=== PATIENT | male | born 1970 | race Hispanic/Latino ===

== ENCOUNTER 2016-07-07 22:17 | Emergency (ER) | payer SELFPAY ==
[2016-07-07 22:53] VITALS: BP 136/93
--- NOTE | 2016-07-11 13:39 | ED Elopement Review ---
ED Pt Elopement review - Call Back decision Pt Call Back Decision: No action required
== END 2016-07-08 01:41 | disposition left against medical advice (07) ==
LOC: ED 22:17
DX: R56.9 Unspecified convulsions (principal); Z88.6 Allergy status to analgesic agent; Z88.5 Allergy status to narcotic agent; Z53.21 Procedure and treatment not carried out due to patient leaving prior to being seen by health care provider

== ENCOUNTER 2021-04-02 10:55 | Inpatient (IN) | payer MEDICAID ==
[2021-04-02] MEDS ORDERED: levETIRAcetam 1000 MG/NS 0.75% 1,000 MG/100 ML BAG IV ONE (11:16)
[2021-04-02 12:10] LABS: Mean Corpuscular HGB Conc 37 % (32-34); Mean Corpuscular Volume 104 fl (84-94); Platelet Count 150 K/mm3 (140-440); Red Blood Count 3.52 M/mm3 (3.65-5.03); Red Cell Distribution Width 14.4 % (13.2-15.2)
[2021-04-02 12:11] LABS: Hematocrit 36.5 % (35.5-45.6); Hemoglobin 13.3 gm/dl (11.8-15.2)
[2021-04-02 12:20] LABS: BUN/Creatinine Ratio 8; Blood Urea Nitrogen 6 mg/dL (9-20); Calcium 8.5 mg/dL (8.4-10.2); Hemolysis Index 3
[2021-04-02 12:52] LABS: Anisocytosis 1+; Band Neutrophils # (Manual) 0.3 K/mm3; Platelet Estimate Consistent w Auto; Total Cells Counted 100
[2021-04-02] MEDS ORDERED: SODIUM CHLORIDE 0.9% 1000 ML 1,000 ML IV ONE (13:02)
[2021-04-02] MEDS ORDERED: LORazepam 2 MG/ML VIAL IV ONE (16:37)
--- NOTE | 2021-04-02 16:42 | Emergency Department Report ---
ED Seizure HPI - General Chief Complaint: Seizure Stated Complaint: SEIZURE Time Seen by Provider: 04/02/21 11:13 Source: EMS Mode of arrival: Stretcher Limitations: Altered Mental Status, Physical Limitation - History of Present Illness Initial Comments: Patient is a 50-year-old male with past medical history of seizure disorder and alcohol abuse who is presenting after seizure. Unknown how many seizures the patient had today. Patient postictal on paramedics arrival. Baseline the patient is conversant. Family told paramedics that the patient often times is violent in a postictal phase. Patient unable to give any additional history at this time. - Related Data Previous Rx's Medication Instructions Recorded Last Taken Type HYDROcodone/APAP 5-325 [[place] 1 each PO Q6HR PRN #14 tablet 12/10/15 Unknown Rx 5/325] Allergies Allergy/AdvReac Type Severity Reaction Status Date / Time aspirin Allergy Unknown Verified 12/10/15 18:22 codeine Allergy Unknown Verified 12/10/15 18:22 ED Review of Systems ROS: Stated complaint: SEIZURE Other details as noted in HPI Comment: All other systems reviewed and negative ED Past Medical Hx - Past Medical History Hx Seizures: Yes (epilepsy) - Social History Smoking Status: Current Every Day Smoker - Medications Home Medications: Home Medications Medication Instructions Recorded Confirmed Last Taken Type HYDROcodone/APAP 5-325 [[place] 1 each PO Q6HR PRN #14 tablet 12/10/15 Unknown Rx 5/325] ED Physical Exam - General Limitations: Altered Mental Status, Physical Limitation General appearance: postictal - Head Head exam: Present: atraumatic, normocephalic - Eye Eye exam: Present: normal appearance, PERRL, EOMI - ENT ENT exam: Present: mucous membranes moist - Neck Neck exam: Present: normal inspection - Respiratory Respiratory exam: Present: normal lung sounds bilaterally. Absent: respiratory distress, wheezes, rales, rhonchi - Cardiovascular Cardiovascular Exam: Present: regular rate, normal rhythm, normal heart sounds. Absent: systolic murmur, diastolic murmur, rubs, gallop - GI/Abdominal GI/Abdominal exam: Present: soft, normal bowel sounds. Absent: distended, tenderness, guarding, rebound - Rectal Rectal exam: Present: deferred - Extremities Exam Extremities exam: Present: normal inspection - Back Exam Back exam: Present: normal inspection - Neurological Exam Neurological exam: Present: alert, altered - Psychiatric Psychiatric exam: Present: normal affect, normal mood - Skin Skin exam: Present: warm, dry, intact, normal color. Absent: rash ED Course Vital Signs 04/02/21 04/02/21 04/02/21 11:29 11:30 11:45 Pulse Rate 92 H Respiratory 17 Rate Blood Pressure 133/83 133/83 O2 Sat by Pulse 93 92 89 Oximetry 04/02/21 04/02/21 04/02/21 12:01 12:15 12:31 Pulse Rate 88 91 H Respiratory 18 13 Rate Blood Pressure 142/79 142/79 136/68 O2 Sat by Pulse 88 91 96 Oximetry 04/02/21 04/02/21 04/02/21 12:45 13:01 13:02 Pulse Rate 93 H 97 H Respiratory 18 17 Rate Blood Pressure 136/68 144/76 O2 Sat by Pulse 97 97 98 Oximetry 04/02/21 04/02/21 04/02/21 13:15 13:31 13:45 Pulse Rate 95 H 89 96 H Respiratory 16 10 L 23 Rate Blood Pressure 144/76 128/74 128/74 O2 Sat by Pulse 97 97 100 Oximetry 04/02/21 04/02/21 04/02/21 14:01 14:15 14:31 Pulse Rate 87 Respiratory 20 13 14 Rate Blood Pressure 117/75 117/75 90/60 O2 Sat by Pulse 100 98 Oximetry 04/02/21 04/02/21 04/02/21 14:45 15:01 15:15 Pulse Rate 103 H Respiratory 17 Rate Blood Pressure 117/75 118/80 118/80 O2 Sat by Pulse 89 98 98 Oximetry 04/02/21 04/02/21 04/02/21 15:31 15:45 16:01 Pulse Rate 80 70 71 Respiratory 18 22 22 Rate Blood Pressure 118/80 90/60 111/71 O2 Sat by Pulse 97 99 100 Oximetry ED Medical Decision Making - Lab Data Result diagrams: 04/02/21 11:45 04/02/21 11:45 Patient was monitored in the emergency department for multiple hours and still in her altered state. Patient moving all extremities but try to get out of bed inappropriately and is not yet verbal. Patient will be admitted for observation for prolonged postictal phase. Critical care attestation.: If time is entered above; I have spent that time in minutes in the direct care of this critically ill patient, excluding procedure time. ED Disposition Clinical Impression: Post-ictal confusion, Hyponatremia, Breakthrough seizure Disposition: 02 SHORT TERM HOSPITAL Is pt being admited?: Yes Does the pt Need Aspirin: No Condition: Stable Referrals: PRIMARY CARE, [Primary Care Provider] - 3-5 Days Time of Disposition: 16:42
[2021-04-02] MEDS ORDERED: LORazepam 2 MG/ML VIAL IV PRN (17:55)
[2021-04-02 18:15] LABS: Amphetamine Screen,Urine Negative; Benzodiazepines Screen,Urine Negative; Cocaine Screen,Urine Negative; Methadone Screen,Urine Negative; Opiate Screen,Urine Negative
[2021-04-02] MEDS: LORazepam 2 MG/ML VIAL IV PRN ×2 (18:17→23:34)
[2021-04-02 18:49] LABS: Cannabinoid Screen,Urine Positive
--- NOTE | 2021-04-02 20:13 | History and Physical Report ---
History of Present Illness Date of examination: 04/02/21 Date of admission: 04/02/21 16:42 Chief complaint: Multiple seizures at home History of present illness: 50-year-old male with history of seizures and alcohol abuse comes in for multiple seizures since a.m. Unknown how many on the paramedics. Patient continues to be postictal in the emergency room and clinician. No agitation. Patient with decreased responsiveness in the emergency room. No fever or chills. No exposure to Covid vaccination status not known. No seizures in the emergency room - Past Medical History --Seizures: Yes (epilepsy) --EtOH dependence --surgical history unavailable because of patient's mental status family history unavailable - Social History Smoking Status: Current Every Day Smoker - Medications Home Medications: Home Medications Medication Instructions Recorded Confirmed Last Taken Type HYDROcodone/APAP 5-325 [[place] 1 each PO Q6HR PRN #14 tablet 12/10/15 Unknown Rx 5/325] Review of Systems ROS: Constitutional no weight loss or weight gain no fever or chills HEENT no sore throat no post nasal drip no diplopia Neck no neck stiffness no lymph gland enlargement Chest and lungs no shortness of breath cough or wheezing CVS no chest pain no diaphoresis no palpitations GI no nausea no vomiting no diarrhea Genitourinary system no dysuria no flank pain Musculoskeletal system no muscle pains no joint pains FINANCE MANAGER multiple seizures and postictal state Skin no rash no itching Psychiatric no depression no homicidal or suicidal tendencies Hematologic no lymphedema or bruising Endocrine no polydipsia no polyuria no cold intolerance no heat intolerance Medications and Allergies Allergies Allergy/AdvReac Type Severity Reaction Status Date / Time aspirin Allergy Unknown Verified 12/10/15 18:22 codeine Allergy Unknown Verified 12/10/15 18:22 Home Medications Medication Instructions Recorded Confirmed Last Taken Type HYDROcodone/APAP 5-325 [[place] 1 each PO Q6HR PRN #14 tablet 12/10/15 Unknown Rx 5/325] Active Meds: Active Medications Sodium Chloride (Nacl 0.9% 1000 Ml) 1,000 mls @ 125 mls/hr IV DIRECT YANIV Lorazepam (Lorazepam 2 Mg/Ml Vial) 2 mg IV Q1HR PRN PRN Reason: EMILY-Dereck 8- Last Admin: 04/02/21 18:17 Dose: 2 mg Documented by: Lorazepam (Lorazepam 2 Mg/Ml Vial) 4 mg IV Q1HR PRN PRN Reason: CIWA-Ar 16-25 Lorazepam (Lorazepam 2 Mg/Ml Vial) 4 mg IV Q15MIN PRN PRN Reason: CIWA-Ar >25 Exam - Constitutional Vitals: Temp Pulse Resp BP Pulse Ox 98.0 F 77 22 112/66 96 04/02/21 18:51 04/02/21 18:01 04/02/21 16:31 04/02/21 18:01 04/02/21 18:01 General appearance: Present: no acute distress, well-nourished - EENT Eyes: Present: PERRL ENT: hearing intact, clear oral mucosa - Neck Neck: Present: supple, normal ROM - Respiratory Respiratory effort: normal Respiratory: bilateral: CTA - Cardiovascular Heart rate: 78 Rhythm: regular Heart Sounds: Present: S1 & S2. Absent: rub, click - Extremities Extremities: pulses symmetrical, No edema Peripheral Pulses: within normal limits - Abdominal General gastrointestinal: Present: soft, non-tender, non-distended, normal bowel sounds Male genitourinary: Present: normal - Integumentary Integumentary: Present: clear, warm, dry - Musculoskeletal Musculoskeletal: strength equal bilaterally, generalized weakness - Psychiatric Psychiatric: intact judgment & insight, depressed - Neurologic Neurologic: CNII-XII intact, moves all extremities - Allied Health Allied health notes reviewed: nursing, case management Results - Labs CBC & Chem 7: 04/02/21 11:45 04/03/21 04:57 Labs: Laboratory Last Values WBC 14.4 K/mm3 (4.5-11.0) H 04/02/21 11:45 RBC 3.52 M/mm3 (3.65-5.03) L 04/02/21 11:45 Hgb 13.3 gm/dl (11.8-15.2) 04/02/21 11:45 Hct 36.5 % (35.5-45.6) 04/02/21 11:45 MCV 104 fl (84-94) H 04/02/21 11:45 MCH 38 pg (28-32) H 04/02/21 11:45 MCHC 37 % (32-34) H 04/02/21 11:45 RDW 14.4 % (13.2-15.2) 04/02/21 11:45 Plt Count 150 K/mm3 (140-440) 04/02/21 11:45 [place] % (Auto) Global Marketing Manager 04/02/21 11:45 Add Manual Diff Complete 04/02/21 11:45 Total Counted 100 04/02/21 11:45 Seg Neuts % (Manual) 77.0 % (40.0-70.0) H 04/02/21 11:45 Band Neutrophils % 2.0 % 04/02/21 11:45 Lymphocytes % (Manual) 6.0 % (13.4-35.0) L 04/02/21 11:45 Monocytes % (Manual) 15.0 % (0.0-7.3) H 04/02/21 11:45 Nucleated RBC % Not Reportable 04/02/21 11:45 Seg Neutrophils # Man 11.1 K/mm3 (1.8-7.7) H 04/02/21 11:45 Band Neutrophils # 0.3 K/mm3 04/02/21 11:45 Lymphocytes # (Manual) 0.9 K/mm3 (1.2-5.4) L 04/02/21 11:45 Abs React Lymphs (Man) 0.0 K/mm3 04/02/21 11:45 Monocytes # (Manual) 2.2 K/mm3 (0.0-0.8) H 04/02/21 11:45 Eosinophils # (Manual) 0.0 K/mm3 (0.0-0.4) 04/02/21 11:45 Basophils # (Manual) 0.0 K/mm3 (0.0-0.1) 04/02/21 11:45 Metamyelocytes # 0.0 K/mm3 04/02/21 11:45 Myelocytes # 0.0 K/mm3 04/02/21 11:45 Promyelocytes # 0.0 K/mm3 04/02/21 11:45 Blast Cells # 0.0 K/mm3 04/02/21 11:45 WBC Morphology Not Reportable 04/02/21 11:45 Hypersegmented Neuts Not Reportable 04/02/21 11:45 Hyposegmented Neuts Not Reportable 04/02/21 11:45 Hypogranular Neuts Not Reportable 04/02/21 11:45 Smudge Cells Not Reportable 04/02/21 11:45 Toxic Granulation Not Reportable 04/02/21 11:45 Toxic Vacuolation Not Reportable 04/02/21 11:45 Dohle Bodies Not Reportable 04/02/21 11:45 Pelger-Huet Anomaly Not Reportable 04/02/21 11:45 Kojo Rods Not Reportable 04/02/21 11:45 Platelet Estimate Consistent w auto 04/02/21 11:45 Clumped Platelets Not Reportable 04/02/21 11:45 Plt Clumps, EDTA Not Reportable 04/02/21 11:45 Large Platelets Not Reportable 04/02/21 11:45 Giant Platelets Not Reportable 04/02/21 11:45 Platelet Satelliting Not Reportable 04/02/21 11:45 Plt Morphology Comment Not Reportable 04/02/21 11:45 RBC Morphology Not Reportable 04/02/21 11:45 Dimorphic RBCs Not Reportable 04/02/21 11:45 Polychromasia Not Reportable 04/02/21 11:45 Hypochromasia Not Reportable 04/02/21 11:45 Poikilocytosis Not Reportable 04/02/21 11:45 Anisocytosis 1+ 04/02/21 11:45 Microcytosis Not Reportable 04/02/21 11:45 Macrocytosis Not Reportable 04/02/21 11:45 Spherocytes Not Reportable 04/02/21 11:45 Pappenheimer Bodies Not Reportable 04/02/21 11:45 Sickle Cells Not Reportable 04/02/21 11:45 Target Cells Not Reportable 04/02/21 11:45 Tear Drop Cells Not Reportable 04/02/21 11:45 Ovalocytes Not Reportable 04/02/21 11:45 Helmet Cells Not Reportable 04/02/21 11:45 [place] Bodies Not Reportable 04/02/21 11:45 [place] Rings Not Reportable 04/02/21 11:45 Gracie Cells Not Reportable 04/02/21 11:45 Bite Cells Not Reportable 04/02/21 11:45 Crenated Cell Not Reportable 04/02/21 11:45 Elliptocytes Not Reportable 04/02/21 11:45 Acanthocytes (Spur) Not Reportable 04/02/21 11:45 Rouleaux Not Reportable 04/02/21 11:45 Hemoglobin C Crystals Not Reportable 04/02/21 11:45 Schistocytes Not Reportable 04/02/21 11:45 Malaria parasites Not Reportable 04/02/21 11:45 Regan Bodies Not Reportable 04/02/21 11:45 Hem Pathologist Commnt No 04/02/21 11:45 Sodium 130 mmol/L (137-145) L 04/02/21 11:45 Potassium 3.9 mmol/L (3.6-5.0) 04/02/21 11:45 Chloride 92.1 mmol/L (98-107) L 04/02/21 11:45 Carbon Dioxide 24 mmol/L (22-30) 04/02/21 11:45 Anion Gap 18 mmol/L 04/02/21 11:45 BUN 6 mg/dL (9-20) L 04/02/21 11:45 Creatinine 0.8 mg/dL (0.8-1.3) 04/02/21 11:45 Estimated GFR > 60 ml/min 04/02/21 11:45 BUN/Creatinine Ratio 8 % 04/02/21 11:45 Glucose 74 mg/dL (75-100) L 04/02/21 11:45 Calcium 8.5 mg/dL (8.4-10.2) 04/02/21 11:45 Urine Opiates Screen Negative 04/02/21 Unknown Urine Methadone Screen Negative 04/02/21 Unknown Ur Barbiturates Screen Negative 04/02/21 Unknown Ur Phencyclidine Scrn Negative 04/02/21 Unknown Ur Amphetamines Screen Negative 04/02/21 Unknown U Benzodiazepines Scrn Negative 04/02/21 Unknown Urine Cocaine Screen Negative 04/02/21 Unknown U Marijuana (THC) Screen Positive 04/02/21 Unknown Drugs of Abuse Note Disclamer 04/02/21 Unknown Plasma/Serum Alcohol < 0.01 % (0-0.07) 04/02/21 11:45 Assessment and Plan Advance Directives: Yes (Full code) Plan of care discussed with patient/family: Yes - Patient Problems (1) Acute encephalopathy Current Visit: Yes Status: Acute Plan to address problem: Patient is post ictal and secondary to status epilepticus Showed improvement tomorrow (2) Status epilepticus Current Visit: Yes Status: Acute Plan to address problem: Patient is on IV Keppra To be transitioned to oral Keppra tomorrow Neurology consult requested (3) Hyponatremia Current Visit: Yes Status: Acute Plan to address problem: IV normal saline for now Recheck sodium level (4) Tetrahydrocannabinol (THC) dependence Current Visit: Yes Status: Acute Plan to address problem: Patient to be counseled about marijuana use (5) DVT prophylaxis Current Visit: Yes Status: Acute Plan to address problem: On heparin and GI prophylaxis
[2021-04-02] MEDS ORDERED: ONDANSETRON 4 MG/2 ML INJ IV PRN (20:16)
[2021-04-02] MEDS ORDERED: oxyCODONE /ACETAMINOPHEN 5-325MG TAB PO PRN (20:16)
[2021-04-02] MEDS ORDERED: METOCLOPRAMIDE 10 MG/2 ML INJ IV PRN (20:16)
[2021-04-02] MEDS ORDERED: ACETAMINOPHEN 325 MG TAB PO PRN (20:16)
[2021-04-02] MEDS: SODIUM CHLORIDE 0.9% 1000 ML 1,000 ML IV SCH (21:36)
[2021-04-02] MEDS: HEPARIN 5,000 UNIT/1 ML VIAL SUB-Q SCH (22:10)
[2021-04-02] MEDS: levETIRAcetam 750 MG in DEXTROSE 5% IN WATER 100 ML IV SCH (22:15)
[2021-04-02] MEDS: FAMOTIDINE 20 MG TAB PO SCH (22:52)
[2021-04-02] MEDS: HYDROmorphone 1 MG/1 ML INJ IV PRN (23:12)
[2021-04-03] MEDS: LORazepam 2 MG/ML VIAL IV PRN ×3 (03:15→12:23)
[2021-04-03 05:40] LABS: Alanine Aminotransferase 7 units/L (7-56); Albumin 3.2 g/dL (3.9-5); Blood Urea Nitrogen 8 mg/dL (9-20); Hemolysis Index 9
[2021-04-03 05:44] LABS: BUN/Creatinine Ratio 11
--- NOTE | 2021-04-03 07:31 | Progress Note ---
Assessment and Plan Assessment and plan: -- Acute encephalopathy Current Visit: Yes Status: Acute Patient is post ictal and secondary to status epilepticus Showed improvement tomorrow -- Status epilepticus Current Visit: Yes Status: Acute Seizure precautions follow Patient is on IV Keppra To be transitioned to oral Keppra tomorrow Follow neurology evaluation recommendations Patient cannot drive until cleared by neurology/PMD -- Hyponatremia Current Visit: Yes Status: Acute IV normal saline for now Recheck sodium level -- Tetrahydrocannabinol (THC) dependence Current Visit: Yes Status: Acute Patient to be counseled about marijuana use -- DVT prophylaxis Current Visit: Yes Status: Acute On heparin and GI prophylaxis We will closely monitor the patient and adjust the management as needed Plan of care reviewed with the patient's nurse Will try to contact the family History Interval history: I have seen and examined the patient at the bedside in the ER awaiting bed assignment Patient was admitted with seizure episodes, and possible alcohol withdrawal symptoms Patient is severely lethargic response to deep stimuli, not in acute distress, No new episodes of Hospitalist Physical - Constitutional Vitals: Temp Pulse Resp BP Pulse Ox 98.0 F 78 21 127/82 97 04/02/21 18:51 04/03/21 07:23 04/03/21 07:23 04/03/21 07:23 04/03/21 07:23 General appearance: Present: no acute distress, well-nourished, other (Lethargic) - EENT Eyes: Present: PERRL, EOM intact - Neck Neck: Present: supple, normal ROM - Respiratory Respiratory effort: normal Respiratory: bilateral: diminished, rhonchi, negative: rales, wheezing - Cardiovascular Rhythm: regular Heart Sounds: Present: S1 & S2 - Extremities Extremities: no ischemia, No edema - Abdominal General gastrointestinal: soft, non-tender, non-distended, normal bowel sounds - Integumentary Integumentary: Present: clear, warm - Psychiatric Psychiatric: other (Nonverbal lethargic) - Neurologic Neurologic: other (Noncommunicative) Results - Labs CBC & Chem 7: 04/02/21 11:45 04/03/21 04:57 Labs: Laboratory Last Values WBC 14.4 K/mm3 (4.5-11.0) H 04/02/21 11:45 RBC 3.52 M/mm3 (3.65-5.03) L 04/02/21 11:45 Hgb 13.3 gm/dl (11.8-15.2) 04/02/21 11:45 Hct 36.5 % (35.5-45.6) 04/02/21 11:45 MCV 104 fl (84-94) H 04/02/21 11:45 MCH 38 pg (28-32) H 04/02/21 11:45 MCHC 37 % (32-34) H 04/02/21 11:45 RDW 14.4 % (13.2-15.2) 04/02/21 11:45 Plt Count 150 K/mm3 (140-440) 04/02/21 11:45 [place] % (Auto) Trigonometry Tutor 04/02/21 11:45 Add Manual Diff Complete 04/02/21 11:45 Total Counted 100 04/02/21 11:45 Seg Neuts % (Manual) 77.0 % (40.0-70.0) H 04/02/21 11:45 Band Neutrophils % 2.0 % 04/02/21 11:45 Lymphocytes % (Manual) 6.0 % (13.4-35.0) L 04/02/21 11:45 Monocytes % (Manual) 15.0 % (0.0-7.3) H 04/02/21 11:45 Nucleated RBC % Not Reportable 04/02/21 11:45 Seg Neutrophils # Man 11.1 K/mm3 (1.8-7.7) H 04/02/21 11:45 Band Neutrophils # 0.3 K/mm3 04/02/21 11:45 Lymphocytes # (Manual) 0.9 K/mm3 (1.2-5.4) L 04/02/21 11:45 Abs React Lymphs (Man) 0.0 K/mm3 04/02/21 11:45 Monocytes # (Manual) 2.2 K/mm3 (0.0-0.8) H 04/02/21 11:45 Eosinophils # (Manual) 0.0 K/mm3 (0.0-0.4) 04/02/21 11:45 Basophils # (Manual) 0.0 K/mm3 (0.0-0.1) 04/02/21 11:45 Metamyelocytes # 0.0 K/mm3 04/02/21 11:45 Myelocytes # 0.0 K/mm3 04/02/21 11:45 Promyelocytes # 0.0 K/mm3 04/02/21 11:45 Blast Cells # 0.0 K/mm3 04/02/21 11:45 WBC Morphology Not Reportable 04/02/21 11:45 Hypersegmented Neuts Not Reportable 04/02/21 11:45 Hyposegmented Neuts Not Reportable 04/02/21 11:45 Hypogranular Neuts Not Reportable 04/02/21 11:45 Smudge Cells Not Reportable 04/02/21 11:45 Toxic Granulation Not Reportable 04/02/21 11:45 Toxic Vacuolation Not Reportable 04/02/21 11:45 Dohle Bodies Not Reportable 04/02/21 11:45 Pelger-Huet Anomaly Not Reportable 04/02/21 11:45 Kojo Rods Not Reportable 04/02/21 11:45 Platelet Estimate Consistent w auto 04/02/21 11:45 Clumped Platelets Not Reportable 04/02/21 11:45 Plt Clumps, EDTA Not Reportable 04/02/21 11:45 Large Platelets Not Reportable 04/02/21 11:45 Giant Platelets Not Reportable 04/02/21 11:45 Platelet Satelliting Not Reportable 04/02/21 11:45 Plt Morphology Comment Not Reportable 04/02/21 11:45 RBC Morphology Not Reportable 04/02/21 11:45 Dimorphic RBCs Not Reportable 04/02/21 11:45 Polychromasia Not Reportable 04/02/21 11:45 Hypochromasia Not Reportable 04/02/21 11:45 Poikilocytosis Not Reportable 04/02/21 11:45 Anisocytosis 1+ 04/02/21 11:45 Microcytosis Not Reportable 04/02/21 11:45 Macrocytosis Not Reportable 04/02/21 11:45 Spherocytes Not Reportable 04/02/21 11:45 Pappenheimer Bodies Not Reportable 04/02/21 11:45 Sickle Cells Not Reportable 04/02/21 11:45 Target Cells Not Reportable 04/02/21 11:45 Tear Drop Cells Not Reportable 04/02/21 11:45 Ovalocytes Not Reportable 04/02/21 11:45 Helmet Cells Not Reportable 04/02/21 11:45 [place] Bodies Not Reportable 04/02/21 11:45 [place] Rings Not Reportable 04/02/21 11:45 Gracie Cells Not Reportable 04/02/21 11:45 Bite Cells Not Reportable 04/02/21 11:45 Crenated Cell Not Reportable 04/02/21 11:45 Elliptocytes Not Reportable 04/02/21 11:45 Acanthocytes (Spur) Not Reportable 04/02/21 11:45 Rouleaux Not Reportable 04/02/21 11:45 Hemoglobin C Crystals Not Reportable 04/02/21 11:45 Schistocytes Not Reportable 04/02/21 11:45 Malaria parasites Not Reportable 04/02/21 11:45 Regan Bodies Not Reportable 04/02/21 11:45 Hem Pathologist Commnt No 04/02/21 11:45 Sodium 130 mmol/L (137-145) L 04/03/21 04:57 Potassium 3.9 mmol/L (3.6-5.0) 04/02/21 11:45 Chloride 92.1 mmol/L (98-107) L 04/02/21 11:45 Carbon Dioxide 26 mmol/L (22-30) 04/03/21 04:57 Anion Gap 18 mmol/L 04/02/21 11:45 BUN 8 mg/dL (9-20) L 04/03/21 04:57 Creatinine 0.7 mg/dL (0.8-1.3) L 04/03/21 04:57 Estimated GFR > 60 ml/min 04/03/21 04:57 BUN/Creatinine Ratio 11 % 04/03/21 04:57 Glucose 79 mg/dL (75-100) 04/03/21 04:57 Calcium 9.0 mg/dL (8.4-10.2) 04/03/21 04:57 Total Bilirubin 0.60 mg/dL (0.1-1.2) 04/03/21 04:57 AST 25 units/L (5-40) 04/03/21 04:57 ALT 7 units/L (7-56) 04/03/21 04:57 Alkaline Phosphatase 44 units/L (35-129) 04/03/21 04:57 Total Protein 6.5 g/dL (6.3-8.2) 04/03/21 04:57 Albumin 3.2 g/dL (3.9-5) L 04/03/21 04:57 Albumin/Globulin Ratio 1.0 % 04/03/21 04:57 Urine Opiates Screen Negative 04/02/21 Unknown Urine Methadone Screen Negative 04/02/21 Unknown Ur Barbiturates Screen Negative 04/02/21 Unknown Ur Phencyclidine Scrn Negative 04/02/21 Unknown Ur Amphetamines Screen Negative 04/02/21 Unknown U Benzodiazepines Scrn Negative 04/02/21 Unknown Urine Cocaine Screen Negative 04/02/21 Unknown U Marijuana (THC) Screen Positive 04/02/21 Unknown Drugs of Abuse Note Disclamer 04/02/21 Unknown Plasma/Serum Alcohol < 0.01 % (0-0.07) 04/02/21 11:45 Active Medications - Current Medications Current Medications: Generic Name Dose Route Start Last Admin Trade Name Freq PRN Reason Stop Dose Admin Acetaminophen 650 mg 04/02/21 20:16 Acetaminophen 325 Mg Tab PO Q4H PRN Pain MILD(1-3)/Fever >100.5/[place] Famotidine 20 mg 04/02/21 22:00 04/02/21 22:52 Famotidine 20 Mg Tab PO Not Given BID YANIV Heparin Sodium (Porcine) 5,000 unit 04/02/21 22:00 04/02/21 22:10 Heparin 5,000 Unit/1 Ml Vial SUB-Q 5,000 unit Q12HR YANIV Administration Hydromorphone HCl 0.5 mg 04/02/21 20:16 Hydromorphone 1 Mg/1 Ml Inj IV Q3H PRN Pain , Severe (7-10) Sodium Chloride 1,000 mls @ 125 mls/hr 04/02/21 17:00 04/02/21 21:36 Nacl 0.9% 1000 Ml IV 125 mls/hr DIRECT YANIV Administration Levetiracetam 750 mg/ Dextrose 107.5 mls @ 400 mls/hr 04/02/21 22:00 04/02/21 22:15 IV 400 mls/hr Q12HR YANIV Administration Lorazepam 2 mg 04/02/21 17:55 04/02/21 23:34 Lorazepam 2 Mg/Ml Vial IV 2 mg Q1HR PRN Administration CIWA-Ar 8-15 Lorazepam 4 mg 04/02/21 17:55 04/03/21 07:10 Lorazepam 2 Mg/Ml Vial IV 4 mg Q1HR PRN Administration CIWA-Ar 16-25 Lorazepam 4 mg 04/02/21 17:55 Lorazepam 2 Mg/Ml Vial IV Q15MIN PRN CIWA-Ar >25 Metoclopramide HCl 10 mg 04/02/21 20:16 Metoclopramide 10 Mg/2 Ml Inj IV Q6H PRN Nausea And Vomiting Ondansetron HCl 4 mg 04/02/21 20:16 Ondansetron 4 Mg/2 Ml Inj IV Q8H PRN Nausea And Vomiting Oxycodone/Acetaminophen 1 tab 04/02/21 20:16 Oxycodone /Acetaminophen 5-325mg Tab PO Q6H PRN Pain, Moderate (4-6) Sodium Chloride 10 ml 04/02/21 22:00 04/02/21 22:15 Sodium Chloride 0.9% 10 Ml Flush Syringe IV 10 ml BID YANIV Administration Sodium Chloride 10 ml 04/02/21 20:16 Sodium Chloride 0.9% 10 Ml Flush Syringe IV PRN PRN LINE FLUSH
--- NOTE | 2021-04-03 09:14 | Consultation ---
History of Present Illness Consult date: 04/03/21 Reason for Consult: recurrent seizure and hx of acoholism History of present illness: Multiple seizures at home History of present illness: 50-year-old male with history of seizures and alcohol abuse comes in for multiple seizures since a.m. Unknown how many on the paramedics. Patient continues to be postictal in the emergency room and clinician. No agitation. Patient with decreased responsiveness in the emergency room. No fever or chills. No exposure to Covid vaccination status not known. No seizures in the emergency room could not get hx from pt. he is sleepy ? post ictal EEG is pending UDS positive for marijuana - Past Medical History --Seizures: Yes (epilepsy) --EtOH dependence --surgical history unavailable because of patient's mental status family history unavailable - Social History Smoking Status: Current Every Day Smoker - Medications Home Medications: Home Medications Medication Instructions Recorded Confirmed Last Taken Type HYDROcodone/APAP 5-325 [Cosby 1 each PO Q6HR PRN #14 tablet 12/10/15 Unknown Rx 5/325] Review of Systems ROS: Constitutional no weight loss or weight gain no fever or chills HEENT no sore throat no post nasal drip no diplopia Neck no neck stiffness no lymph gland enlargement Chest and lungs no shortness of breath cough or wheezing CVS no chest pain no diaphoresis no palpitations GI no nausea no vomiting no diarrhea Genitourinary system no dysuria no flank pain Musculoskeletal system no muscle pains no joint pains MANAGER COSMETIC multiple seizures and postictal state Skin no rash no itching Psychiatric no depression no homicidal or suicidal tendencies Hematologic no lymphedema or bruising Endocrine no polydipsia no polyuria no cold intolerance no heat intolerance Medications and Allergies Allergies Allergy/AdvReac Type Severity Reaction Status Date / Time aspirin Allergy Unknown Verified 12/10/15 18:22 codeine Allergy Unknown Verified 12/10/15 18:22 Home Medications Medication Instructions Recorded Confirmed Last Taken Type HYDROcodone/APAP 5-325 [Cosby 1 each PO Q6HR PRN #14 tablet 12/10/15 Unknown Rx 5/325] Active Meds: Active Medications Sodium Chloride (Nacl 0.9% 1000 Ml) 1,000 mls @ 125 mls/hr IV DIRECT YANIV Lorazepam (Lorazepam 2 Mg/Ml Vial) 2 mg IV Q1HR PRN PRN Reason: CIWA-Ar 02-09 Last Admin: 10/06/21 18:17 Dose: 2 mg Documented by: Lorazepam (Lorazepam 2 Mg/Ml Vial) 4 mg IV Q1HR PRN PRN Reason: CIWA-Ar 16-25 Lorazepam (Lorazepam 2 Mg/Ml Vial) 4 mg IV Q15MIN PRN PRN Reason: CIWA-Ar >25 Medications and Allergies Allergies Allergy/AdvReac Type Severity Reaction Status Date / Time codeine Allergy Severe Unknown Verified 04/03/21 11:17 aspirin Allergy Unknown Verified 12/10/15 18:22 phenobarbital Allergy Unknown Verified 04/03/21 11:17 Home Medications Medication Instructions Recorded Confirmed Last Taken Type Divalproex Dr [DepaKOTE DR] 750 mg PO BID 04/03/21 04/03/21 04/01/21 History Lacosamide [Vimpat] 150 mg PO 04/03/21 04/01/21 History Active Meds: Active Medications Acetaminophen (Acetaminophen 325 Mg Tab) 650 mg PO Q4H PRN PRN Reason: Pain MILD(1-3)/Fever >100.5/[place] Famotidine (Famotidine 20 Mg Tab) 20 mg PO BID [facility] Last Admin: 04/02/21 22:52 Dose: Not Given Documented by: Heparin Sodium (Porcine) (Heparin 5,000 Unit/1 Ml Vial) 5,000 unit SUB-Q Q12HR [facility] Last Admin: 04/02/21 22:10 Dose: 5,000 unit Documented by: Hydromorphone HCl (Hydromorphone 1 Mg/1 Ml Inj) 0.5 mg IV Q3H PRN PRN Reason: Pain , Severe (7-10) Sodium Chloride (Nacl 0.9% 1000 Ml) 1,000 mls @ 125 mls/hr IV DIRECT [facility] Last Admin: 04/02/21 21:36 Dose: 125 mls/hr Documented by: Levetiracetam 750 mg/ Dextrose 107.5 mls @ 400 mls/hr IV Q12HR [facility] Last Admin: 04/02/21 22:15 Dose: 400 mls/hr Documented by: Lorazepam (Lorazepam 2 Mg/Ml Vial) 2 mg IV Q1HR PRN PRN Reason: CIWA-Ar 8-15 Last Admin: 04/02/21 23:34 Dose: 2 mg Documented by: Lorazepam (Lorazepam 2 Mg/Ml Vial) 4 mg IV Q1HR PRN PRN Reason: CIWA-Ar 16-25 Last Admin: 04/03/21 07:10 Dose: 4 mg Documented by: Lorazepam (Lorazepam 2 Mg/Ml Vial) 4 mg IV Q15MIN PRN PRN Reason: CIWA-Ar >25 Metoclopramide HCl (Metoclopramide 10 Mg/2 Ml Inj) 10 mg IV Q6H PRN PRN Reason: Nausea And Vomiting Ondansetron HCl (Ondansetron 4 Mg/2 Ml Inj) 4 mg IV Q8H PRN PRN Reason: Nausea And Vomiting Oxycodone/Acetaminophen (Oxycodone /Acetaminophen 5-325mg Tab) 1 tab PO Q6H PRN PRN Reason: Pain, Moderate (4-6) Sodium Chloride (Sodium Chloride 0.9% 10 Ml Flush Syringe) 10 ml IV BID YANIV Last Admin: 04/02/21 22:15 Dose: 10 ml Documented by: Sodium Chloride (Sodium Chloride 0.9% 10 Ml Flush Syringe) 10 ml IV PRN PRN PRN Reason: LINE FLUSH Physical Examination - Vital Signs Vital Signs: Vital Signs Pulse Ox 93 04/02/21 11:29 - Constitutional General appearance: comfortable - EENT EENT: Present: PERRL, mucous membranes moist - Respiratory Respiratory: Present: chest non-tender, lungs clear, rhonchi - Cardiovascular Cardiovascular: Present: regular rate, normal S1, normal S2 Extremities: Present: no peripheral edema bilatateraly, no clubbing, cyanosis - Gastrointestinal Gastrointestinal: Present: normoactive bowel sounds - Integumentary Integumentary: Present: normal - Neurologic Cranial nerve examination: PERRL, EOMI, intact Speech examination: other (sleepy) Detailed motor examination: other (no response he is sleepy ,planter is down going,) Results - Laboratory Findings CBC and BMP: 04/02/21 11:45 04/03/21 04:57 Abnormal Lab Findings: Abnormal Labs 04/02/21 04/02/21 04/03/21 11:45 11:45 04:57 WBC 14.4 H RBC 3.52 L MCV 104 H MCH 38 H MCHC 37 H Seg Neuts % (Manual) 77.0 H Lymphocytes % (Manual) 6.0 L Monocytes % (Manual) 15.0 H Seg Neutrophils # Man 11.1 H Lymphocytes # (Manual) 0.9 L Monocytes # (Manual) 2.2 H Sodium 130 L 130 L Chloride 92.1 L BUN 6 L 8 L Creatinine 0.7 L Glucose 74 L Albumin 3.2 L Assessment and Plan Assessment and Plan Advance Directives: Yes (Full code) Plan of care discussed with patient/family: Yes - Patient Problems # Acute encephalopathy -Patient is post ictal and secondary to status epilepticus -EEG pending -CT brain is unremarkable -UDS showed Marijuana -Thiamin IV #Status epilepticus -Patient is on IV Keppra -keppra 750 mg bid # Hyponatremia IV normal saline for now Recheck sodium level # Tetrahydrocannabinol (THC) dependence -Patient to be counseled about marijuana use # DVT prophylaxis -On heparin and GI prophylaxis
--- NOTE | 2021-04-03 10:12 | Cat Scan Report ---
CT head/brain wo con INDICATION / CLINICAL INFORMATION: 50 years Male; recurrent seizure. TECHNIQUE: Routine CT head without contrast. All CT scans at this location are performed using CT dos e reduction for ALARA by means of automated exposure control. Significant motion artifact COMPARISON: None. FINDINGS: BRAIN / INTRACRANIAL CONTENTS: No acute hemorrhage, mass effect, midline shift, hydrocephalus, or acu te, large territorial infarct. No signs of significant atrophy or chronic infarct. No significant whi te matter abnormality seen. CRANIOCERVICAL JUNCTION: No significant abnormality. ORBITS: No significant abnormality of visualized orbits. SINUSES / MASTOIDS: Mild to moderate mucosal thickening in the right maxillary antrum. Mild mucosal t hickening noted in the ethmoids. ADDITIONAL FINDINGS: None. IMPRESSION: 1. No focal mass, hemorrhage, hydrocephalus, or acute, large territorial infarct on this study limite d by motion. Signer Name: Gilbert Del Castillo MD, III Signed: 04/03/2021 10:08 AM Workstation Name: [id number]
[2021-04-03] MEDS: HEPARIN 5,000 UNIT/1 ML VIAL SUB-Q SCH ×2 (10:21→22:52)
[2021-04-03] MEDS: levETIRAcetam 750 MG in DEXTROSE 5% IN WATER 100 ML IV SCH ×2 (10:54→22:51)
[2021-04-03] MEDS: THIAMINE 100 MG in SODIUM CHLORIDE 0.9% 50 ML IV SCH (12:20)
[2021-04-03] MEDS: FAMOTIDINE 20 MG TAB PO SCH ×2 (12:22→22:51)
[2021-04-03] MEDS: HYDROmorphone 1 MG/1 ML INJ IV PRN (20:10)
[2021-04-04] MEDS: SODIUM CHLORIDE 0.9% 1000 ML 1,000 ML IV SCH (01:01)
[2021-04-04] MEDS: FAMOTIDINE 20 MG TAB PO SCH ×2 (11:52→22:25)
[2021-04-04] MEDS: HEPARIN 5,000 UNIT/1 ML VIAL SUB-Q SCH ×2 (11:58→22:25)
[2021-04-04] MEDS: THIAMINE 100 MG in SODIUM CHLORIDE 0.9% 50 ML IV SCH (12:00)
[2021-04-04] MEDS: levETIRAcetam 750 MG in DEXTROSE 5% IN WATER 100 ML IV SCH (12:15)
--- NOTE | 2021-04-04 12:51 | Progress Note ---
Assessment and Plan Assessment and Plan Advance Directives: Yes (Full code) Plan of care discussed with patient/family: Yes - Patient Problems # Acute encephalopathy -Patient is post ictal and secondary to recurrent seizure -EEG mild slowing no seizure is noted --full report to follow today -CT brain is unremarkable -UDS showed Marijuana -Thiamin IV #recurrent seizure -Patient is on IV Keppra can change to 750 mg bid -keppra 750 mg bid -hx of seizure according to pt. almost monthly -STOP driving and seizure precaution -No alcohol or recreational drugs -Comply with keppra -neurology follow up -review MRI brain # Hyponatremia IV normal saline for now Recheck sodium level # Tetrahydrocannabinol (THC) dependence -Patient to be counseled about marijuana use # DVT prophylaxis -On heparin and GI prophylaxis Subjective Date of service: 04/04/21 Principal diagnosis: recurrent seizure Interval history: Pt. is more alert todat disoriented to place and date recall his birthdate according to pt. he stopped drinking few months back ? he is with recurrent seizure almost monthly at time take phenobarbitol ? he drives , lives with his mom. Objective - Vital Sign Vital Signs - 12hr 04/04/21 04:17 Temperature 98.0 F Pulse Rate 88 Respiratory 18 Rate Blood Pressure 125/90 O2 Sat by Pulse 98 Oximetry - General Apperance Constitutional: comfortable - EENT EENT: PERRL, mucous membranes moist - Respiratory Respiratory: chest non-tender, lungs clear, rhonchi - Cardiovascular Cardiovascular: regular rate, normal S1, normal S2 Extremities: no peripheral edema bilat, no clubbing, cyanosis - Gastrointestinal Gastrointestinal: normoactive bowel sounds - Integumentary Integumentary: normal - Neurologic Cranial nerve examination: PERRL, EOMI, intact Speech examination: intact Detailed motor examination: grossly full strength in - Laboratory Findings CBC and BMP: 04/02/21 11:45 04/03/21 04:57 Abnormal Lab Findings: Abnormal Labs 04/02/21 04/02/21 04/03/21 11:45 11:45 04:57 WBC 14.4 H RBC 3.52 L MCV 104 H MCH 38 H MCHC 37 H Seg Neuts % (Manual) 77.0 H Lymphocytes % (Manual) 6.0 L Monocytes % (Manual) 15.0 H Seg Neutrophils # Man 11.1 H Lymphocytes # (Manual) 0.9 L Monocytes # (Manual) 2.2 H Sodium 130 L 130 L Chloride 92.1 L BUN 6 L 8 L Creatinine 0.7 L Glucose 74 L Albumin 3.2 L
--- NOTE | 2021-04-04 18:15 | Progress Note ---
Assessment and Plan Assessment and plan: -- Acute encephalopathy Current Visit: Yes Status: Acute Patient is post ictal and secondary to status epilepticus Showed improvement tomorrow -- Status epilepticus Current Visit: Yes Status: Acute Seizure precautions Patient is on IV Keppra To be transitioned to oral Keppra tomorrow Neurology evaluation noted and appreciated Recommend EEG ; slowing, no evidence of seizure. and MRI is requested, pending Patient advised not to take until cleared by neurologist/PMD -- Hyponatremia Current Visit: Yes Status: Acute IV normal saline for now Recheck sodium level --Marijuana dependence Current Visit: Yes Status: Acute Patient counseled and advised to quit Recreational drug use -- DVT prophylaxis Current Visit: Yes Status: Acute On heparin and GI prophylaxis We will closely monitor the patient and adjust the management as needed Plan of care reviewed with the patient's nurse Will try to contact the family 04/04/2021; no new episodes of seizure Keppra changed to oral, EEG slow waves MRI pending, neurology following History Interval history: I have seen and examined the patient at the bedside Patient's chart and medications reviewed No new episodes of seizure. Patient is more alert and awake No new complaints wants food and want to go home Hospitalist Physical - Constitutional Vitals: Temp Pulse Resp BP Pulse Ox 98.0 F 120 H 18 125/90 99 04/04/21 04:17 04/04/21 12:00 04/04/21 04:17 04/04/21 04:17 04/04/21 12:00 General appearance: Present: no acute distress, well-nourished, other (Lethargic) - EENT Eyes: Present: PERRL, EOM intact - Neck Neck: Present: supple, normal ROM - Respiratory Respiratory effort: normal Respiratory: bilateral: diminished, negative: rales, rhonchi, wheezing - Cardiovascular Rhythm: regular Heart Sounds: Present: S1 & S2 - Extremities Extremities: no ischemia, No edema - Abdominal General gastrointestinal: soft, non-tender, non-distended, normal bowel sounds - Integumentary Integumentary: Present: clear, warm - Psychiatric Psychiatric: appropriate mood/affect, cooperative - Neurologic Neurologic: CNII-XII intact, moves all extremities Results - Labs CBC & Chem 7: 04/02/21 11:45 04/03/21 04:57 Labs: Laboratory Last Values WBC 14.4 K/mm3 (4.5-11.0) H 04/02/21 11:45 RBC 3.52 M/mm3 (3.65-5.03) L 04/02/21 11:45 Hgb 13.3 gm/dl (11.8-15.2) 04/02/21 11:45 Hct 36.5 % (35.5-45.6) 04/02/21 11:45 MCV 104 fl (84-94) H 04/02/21 11:45 MCH 38 pg (28-32) H 04/02/21 11:45 MCHC 37 % (32-34) H 04/02/21 11:45 RDW 14.4 % (13.2-15.2) 04/02/21 11:45 Plt Count 150 K/mm3 (140-440) 04/02/21 11:45 [place] % (Auto) Patch Sander 04/02/21 11:45 Add Manual Diff Complete 04/02/21 11:45 Total Counted 100 04/02/21 11:45 Seg Neuts % (Manual) 77.0 % (40.0-70.0) H 04/02/21 11:45 Band Neutrophils % 2.0 % 04/02/21 11:45 Lymphocytes % (Manual) 6.0 % (13.4-35.0) L 04/02/21 11:45 Monocytes % (Manual) 15.0 % (0.0-7.3) H 04/02/21 11:45 Nucleated RBC % Not Reportable 04/02/21 11:45 Seg Neutrophils # Man 11.1 K/mm3 (1.8-7.7) H 04/02/21 11:45 Band Neutrophils # 0.3 K/mm3 04/02/21 11:45 Lymphocytes # (Manual) 0.9 K/mm3 (1.2-5.4) L 04/02/21 11:45 Abs React Lymphs (Man) 0.0 K/mm3 04/02/21 11:45 Monocytes # (Manual) 2.2 K/mm3 (0.0-0.8) H 04/02/21 11:45 Eosinophils # (Manual) 0.0 K/mm3 (0.0-0.4) 04/02/21 11:45 Basophils # (Manual) 0.0 K/mm3 (0.0-0.1) 04/02/21 11:45 Metamyelocytes # 0.0 K/mm3 04/02/21 11:45 Myelocytes # 0.0 K/mm3 04/02/21 11:45 Promyelocytes # 0.0 K/mm3 04/02/21 11:45 Blast Cells # 0.0 K/mm3 04/02/21 11:45 WBC Morphology Not Reportable 04/02/21 11:45 Hypersegmented Neuts Not Reportable 04/02/21 11:45 Hyposegmented Neuts Not Reportable 04/02/21 11:45 Hypogranular Neuts Not Reportable 04/02/21 11:45 Smudge Cells Not Reportable 04/02/21 11:45 Toxic Granulation Not Reportable 04/02/21 11:45 Toxic Vacuolation Not Reportable 04/02/21 11:45 Dohle Bodies Not Reportable 04/02/21 11:45 Pelger-Huet Anomaly Not Reportable 04/02/21 11:45 Kojo Rods Not Reportable 04/02/21 11:45 Platelet Estimate Consistent w auto 04/02/21 11:45 Clumped Platelets Not Reportable 04/02/21 11:45 Plt Clumps, EDTA Not Reportable 04/02/21 11:45 Large Platelets Not Reportable 04/02/21 11:45 Giant Platelets Not Reportable 04/02/21 11:45 Platelet Satelliting Not Reportable 04/02/21 11:45 Plt Morphology Comment Not Reportable 04/02/21 11:45 RBC Morphology Not Reportable 04/02/21 11:45 Dimorphic RBCs Not Reportable 04/02/21 11:45 Polychromasia Not Reportable 04/02/21 11:45 Hypochromasia Not Reportable 04/02/21 11:45 Poikilocytosis Not Reportable 04/02/21 11:45 Anisocytosis 1+ 04/02/21 11:45 Microcytosis Not Reportable 04/02/21 11:45 Macrocytosis Not Reportable 04/02/21 11:45 Spherocytes Not Reportable 04/02/21 11:45 Pappenheimer Bodies Not Reportable 04/02/21 11:45 Sickle Cells Not Reportable 04/02/21 11:45 Target Cells Not Reportable 04/02/21 11:45 Tear Drop Cells Not Reportable 04/02/21 11:45 Ovalocytes Not Reportable 04/02/21 11:45 Helmet Cells Not Reportable 04/02/21 11:45 Bennett-Woodfin Bodies Not Reportable 04/02/21 11:45 [place] Rings Not Reportable 04/02/21 11:45 Gracie Cells Not Reportable 04/02/21 11:45 Bite Cells Not Reportable 04/02/21 11:45 Crenated Cell Not Reportable 04/02/21 11:45 Elliptocytes Not Reportable 04/02/21 11:45 Acanthocytes (Spur) Not Reportable 04/02/21 11:45 Rouleaux Not Reportable 04/02/21 11:45 Hemoglobin C Crystals Not Reportable 04/02/21 11:45 Schistocytes Not Reportable 04/02/21 11:45 Malaria parasites Not Reportable 04/02/21 11:45 Regan Bodies Not Reportable 04/02/21 11:45 Hem Pathologist Commnt No 04/02/21 11:45 Sodium 130 mmol/L (137-145) L 04/03/21 04:57 Potassium 3.9 mmol/L (3.6-5.0) 04/02/21 11:45 Chloride 92.1 mmol/L (98-107) L 04/02/21 11:45 Carbon Dioxide 26 mmol/L (22-30) 04/03/21 04:57 Anion Gap 18 mmol/L 04/02/21 11:45 BUN 8 mg/dL (9-20) L 04/03/21 04:57 Creatinine 0.7 mg/dL (0.8-1.3) L 04/03/21 04:57 Estimated GFR > 60 ml/min 04/03/21 04:57 BUN/Creatinine Ratio 11 % 04/03/21 04:57 Glucose 79 mg/dL (75-100) 04/03/21 04:57 Calcium 9.0 mg/dL (8.4-10.2) 04/03/21 04:57 Total Bilirubin 0.60 mg/dL (0.1-1.2) 04/03/21 04:57 AST 25 units/L (5-40) 04/03/21 04:57 ALT 7 units/L (7-56) 04/03/21 04:57 Alkaline Phosphatase 44 units/L (35-129) 04/03/21 04:57 Total Protein 6.5 g/dL (6.3-8.2) 04/03/21 04:57 Albumin 3.2 g/dL (3.9-5) L 04/03/21 04:57 Albumin/Globulin Ratio 1.0 % 04/03/21 04:57 Urine Opiates Screen Negative 04/02/21 Unknown Urine Methadone Screen Negative 04/02/21 Unknown Ur Barbiturates Screen Negative 04/02/21 Unknown Ur Phencyclidine Scrn Negative 04/02/21 Unknown Ur Amphetamines Screen Negative 04/02/21 Unknown U Benzodiazepines Scrn Negative 04/02/21 Unknown Urine Cocaine Screen Negative 04/02/21 Unknown U Marijuana (THC) Screen Positive 04/02/21 Unknown Drugs of Abuse Note Disclamer 04/02/21 Unknown Plasma/Serum Alcohol < 0.01 % (0-0.07) 04/02/21 11:45 Active Medications - Current Medications Current Medications: Generic Name Dose Route Start Last Admin Trade Name Freq PRN Reason Stop Dose Admin Acetaminophen 650 mg 04/02/21 20:16 Acetaminophen 325 Mg Tab PO Q4H PRN Pain MILD(1-3)/Fever >100.5/[place] Famotidine 20 mg 04/02/21 22:00 04/04/21 11:52 Famotidine 20 Mg Tab PO Not Given BID YANIV Heparin Sodium (Porcine) 5,000 unit 04/02/21 22:00 04/04/21 11:58 Heparin 5,000 Unit/1 Ml Vial SUB-Q 5,000 unit Q12HR YANIV Administration Hydromorphone HCl 0.5 mg 04/02/21 20:16 04/03/21 20:10 Hydromorphone 1 Mg/1 Ml Inj IV 0.5 mg Q3H PRN Administration Pain , Severe (7-10) Sodium Chloride 1,000 mls @ 125 mls/hr 04/02/21 17:00 04/04/21 01:01 Nacl 0.9% 1000 Ml IV 125 mls/hr DIRECT YANIV Administration Levetiracetam 750 mg/ Dextrose 107.5 mls @ 400 mls/hr 04/02/21 22:00 04/03/21 22:51 IV 400 mls/hr Q12HR YANIV Administration Thiamine HCl 100 mg/ Sodium 51 mls @ 100 mls/hr 04/03/21 12:00 04/03/21 12:20 Chloride IV 04/05/21 23:59 100 mls/hr QDAY YANIV Administration Lorazepam 2 mg 04/02/21 17:55 04/03/21 12:23 Lorazepam 2 Mg/Ml Vial IV 2 mg Q1HR PRN Administration CIWA-Ar 8-15 Lorazepam 4 mg 04/02/21 17:55 04/03/21 07:10 Lorazepam 2 Mg/Ml Vial IV 4 mg Q1HR PRN Administration CIWA-Ar 16-25 Lorazepam 4 mg 04/02/21 17:55 Lorazepam 2 Mg/Ml Vial IV Q15MIN PRN CIWA-Ar >25 Metoclopramide HCl 10 mg 04/02/21 20:16 Metoclopramide 10 Mg/2 Ml Inj IV Q6H PRN Nausea And Vomiting Ondansetron HCl 4 mg 04/02/21 20:16 Ondansetron 4 Mg/2 Ml Inj IV Q8H PRN Nausea And Vomiting Oxycodone/Acetaminophen 1 tab 04/02/21 20:16 Oxycodone /Acetaminophen 5-325mg Tab PO Q6H PRN Pain, Moderate (4-6) Sodium Chloride 10 ml 04/02/21 22:00 04/04/21 11:51 Sodium Chloride 0.9% 10 Ml Flush Syringe IV 10 ml BID YANIV Administration Sodium Chloride 10 ml 04/02/21 20:16 04/03/21 12:22 Sodium Chloride 0.9% 10 Ml Flush Syringe IV 10 ml PRN PRN Administration LINE FLUSH Nutrition/Malnutrition Assess - Dietary Evaluation Nutrition/Malnutrition Findings: Nutrition Notes Start: 04/04/21 14:10 Freq: Status: Active Protocol: Document 04/04/21 14:10 ALISON (Rec: 04/04/21 14:37 ALISON [id number]) Nutrition Notes Need for Assessment generated from: [facility] Initial or Follow up Assessment Other Pertinent Diagnosis Sezure, altered mental status Current Diet NPO (since D 04/02) Labs/Tests 04/03: Na 130, BUN 8, Cr 0.7. Pertinent Medications 04/03: Unremarkable. Height 5 ft 5 in Weight 56.5 kg [place] Body Weight (kg) 61.81 BMI 20.7 Weight Status Appropriate Subjective/Other Information Pt on NPO, and unable to inform about food tolerance nor appetite. Percent of energy/protein needs met: Pt on NPO for +/- 48 hrs. Burn Absent Trauma Absent GI Symptoms None Food Allergy No Skin Integrity/Comment Integumentary; clear,warm, dry . Current % PO Other Minimum of two criteria No physical signs of malnutrition #1 Nutrition Diagnosis Inadequate energy intake,No nutrition diagnosis at this time Comments: Pt is not receiving energy/ protein needs due to NPO restriction; no further information available at the time. Is patient on ventilator? No Is Patient Ambulatory and/or Out of Bed Yes REE-(Rougon-St. Jeor-ambulatory/OOB) [ 1744.444 NUTR.[id number]] Kcal/Kg value to use for calculation 30 Approximate Energy Requirements Using 1695 kcal/Kg Calculation Used for Recommendations Kcal/kg Additional Notes Protein: 0.8-1.0 g/Kg/day; 50- 62 g/day; 200-240 Kcal/day ( from IBW). Fluids: 1.0 ml/Kcal, or as per MD. Nutrition Intervention Change Diet Order: Continue NPO as per MD. Goal #1 Maintain body weight within +/ -3% of current BWt during LOS. Goal #2 Reach and maintain acceptable chemistry lab values during LOS. Goal #3 Resume PO feeding as soon as possible. Follow-Up By: 04/11/21 Additional Comments Continue monitoring hydration and BM.
[2021-04-04] MEDS: levETIRAcetam 500 MG/5 ML ORAL LIQD PO SCH (22:25)
[2021-04-05 06:33] LABS: Alanine Aminotransferase 10 units/L (7-56); Albumin 2.6 g/dL (3.9-5); Blood Urea Nitrogen 10 mg/dL (9-20); Calcium 8.5 mg/dL (8.4-10.2); Hemolysis Index 0
[2021-04-05 06:40] LABS: BUN/Creatinine Ratio 17
[2021-04-05] MEDS ORDERED: MAGNESIUM SULFATE 2 GM/50 ML BAG IV ONE (09:00)
[2021-04-05 09:01] LABS: Basophils % (Auto) 0.1 % (0.0-1.8); Hemoglobin 11.6 gm/dl (11.8-15.2); Lymphocytes # (Auto) 1.3 K/mm3 (1.2-5.4); Lymphocytes % (Auto) 12.2 % (13.4-35.0); Mean Corpuscular HGB Conc 36 % (32-34); Mean Corpuscular Volume 104 fl (84-94); Monocytes # (Auto) 1.6 K/mm3 (0.0-0.8); Monocytes % (Auto) 15.3 % (0.0-7.3); Platelet Count 164 K/mm3 (140-440); Red Blood Count 3.06 M/mm3 (3.65-5.03); Red Cell Distribution Width 13.8 % (13.2-15.2)
[2021-04-05] MEDS: levoFLOXacin 750 MG TAB PO SCH (09:45)
[2021-04-05] MEDS: HEPARIN 5,000 UNIT/1 ML VIAL SUB-Q SCH ×2 (09:45→22:27)
[2021-04-05] MEDS: FAMOTIDINE 20 MG TAB PO SCH ×2 (09:45→22:27)
[2021-04-05] MEDS: levETIRAcetam 500 MG/5 ML ORAL LIQD PO SCH ×2 (09:45→22:27)
--- NOTE | 2021-04-05 12:33 | Progress Note ---
Assessment and Plan Assessment and Plan Advance Directives: Yes (Full code) Plan of care discussed with patient/family: Yes - Patient Problems # Acute encephalopathy -Patient is post ictal and secondary to recurrent seizure -EEG mild slowing no seizure is noted -CT brain is unremarkable -UDS showed Marijuana -Thiamin IV # Underlying dementia -mostly multifactorial - #recurrent seizure -Patient is on IV Keppra can change to 750 mg bid -keppra 750 mg bid -hx of seizure according to pt. almost monthly -STOP driving and seizure precaution -No alcohol or recreational drugs -Comply with keppra -neurology follow up -review MRI brain once is done # Hyponatremia IV normal saline for now Recheck sodium level # Tetrahydrocannabinol (THC) dependence -Patient to be counseled about marijuana use # DVT prophylaxis -On heparin and GI prophylaxis Subjective Date of service: 04/05/21 Principal diagnosis: recurrent seizure Interval history: Pt. is more alert todat disoriented to place and date recall his birthdate, does not knows president name, he remeber his home address. according to pt. he stopped drinking few months back ? he is with recurrent seizure almost monthly at time take phenobarbitol ? he drives , lives with his mom. Objective - Vital Sign Vital Signs - 12hr 04/05/21 04/05/21 03:47 07:43 Temperature 99.7 F H 98.0 F Pulse Rate 95 H 79 Respiratory 20 18 Rate Blood Pressure 108/73 116/68 O2 Sat by Pulse 93 94 Oximetry - General Apperance Constitutional: comfortable - EENT EENT: PERRL, mucous membranes moist - Respiratory Respiratory: chest non-tender, lungs clear, rhonchi - Cardiovascular Cardiovascular: regular rate, normal S1, normal S2 Extremities: no peripheral edema bilat, no clubbing, cyanosis - Gastrointestinal Gastrointestinal: normoactive bowel sounds - Integumentary Integumentary: normal - Neurologic Cranial nerve examination: PERRL, EOMI, intact Speech examination: intact Detailed motor examination: grossly full strength in - Laboratory Findings CBC and BMP: 04/05/21 08:18 04/05/21 05:28 Abnormal Lab Findings: Abnormal Labs 04/02/21 04/02/21 04/03/21 11:45 11:45 04:57 WBC 14.4 H RBC 3.52 L Hgb Hct MCV 104 H MCH 38 H MCHC 37 H Lymph % (Auto) [place] % (Auto) [place] # (Auto) Seg Neutrophils % Seg Neuts % (Manual) 77.0 H Lymphocytes % (Manual) 6.0 L Monocytes % (Manual) 15.0 H Seg Neutrophils # Man 11.1 H Lymphocytes # (Manual) 0.9 L Monocytes # (Manual) 2.2 H Sodium 130 L 130 L Chloride 92.1 L BUN 6 L 8 L Creatinine 0.7 L Glucose 74 L Magnesium Alkaline Phosphatase Total Protein Albumin 3.2 L 04/05/21 04/05/21 05:28 08:18 WBC RBC 3.06 L Hgb 11.6 L Hct 32.0 L MCV 104 H MCH 38 H MCHC 36 H Lymph % (Auto) 12.2 L [place] % (Auto) 15.3 H [place] # (Auto) 1.6 H Seg Neutrophils % 72.4 H Seg Neuts % (Manual) Lymphocytes % (Manual) Monocytes % (Manual) Seg Neutrophils # Man Lymphocytes # (Manual) Monocytes # (Manual) Sodium 132 L Chloride 95.3 L BUN Creatinine 0.6 L Glucose Magnesium 1.60 L Alkaline Phosphatase 33 L Total Protein 5.8 L Albumin 2.6 L
--- NOTE | 2021-04-05 14:21 | Magnetic Resonance Report ---
MRI BRAIN WITHOUT CONTRAST INDICATION / CLINICAL INFORMATION: Recurrent seizures/recommended by neurology. TECHNIQUE: Multiplanar, multisequence MR images of the brain were obtained. COMPARISON: Head CT on 04/03/2021 FINDINGS: BRAIN / INTRACRANIAL CONTENTS: There is restricted diffusion and increased T2 signal in the bilateral hippocampi. There is no additional restricted diffusion. There is no hemorrhage, hydrocephalus, or a dverse mass effect. No chronic infarct or significant atrophy. No significant demyelinating changes. CRANIOCERVICAL JUNCTION: No significant abnormality. VASCULAR FLOW-VOIDS: No significant abnormality. ORBITS: No significant abnormality of visualized orbits. SINUSES / MASTOIDS: No significant abnormality of visualized sinuses and mastoid air cells. ADDITIONAL FINDINGS: None. IMPRESSION: 1. Bilateral hippocampal restricted diffusion and increased T2 signal likely secondary to seizures. N o hemorrhage or adverse mass effect. Signer Name: Marquise Castro MD Signed: 04/05/2021 2:16 PM Workstation Name: [id number]
--- NOTE | 2021-04-05 15:04 | Progress Note ---
Assessment and Plan Assessment and plan: -- Acute encephalopathy Current Visit: Yes Status: Acute Patient is post ictal and secondary to status epilepticus Showed improvement tomorrow -- Status epilepticus Current Visit: Yes Status: Acute Seizure precautions Patient is on IV Keppra To be transitioned to oral Keppra tomorrow Neurology evaluation noted and appreciated Recommend EEG ; slowing, no evidence of seizure. and MRI is requested, pending Patient advised not to take until cleared by neurologist/PMD -- Hyponatremia Current Visit: Yes Status: Acute IV normal saline for now Recheck sodium level --Marijuana dependence Current Visit: Yes Status: Acute Patient counseled and advised to quit Recreational drug use -- DVT prophylaxis Current Visit: Yes Status: Acute On heparin and GI prophylaxis We will closely monitor the patient and adjust the management as needed Plan of care reviewed with the patient's nurse Will try to contact the family 04/04/2021; no new episodes of seizure Keppra changed to oral, EEG slow waves MRI pending, neurology following 04/05/21; MRI pending, if MRI is negative And cleared by neurology patient may be discharged home History Interval history: I have seen and examined the patient at the bedside Patient's chart and medications reviewed Patient did not have any new episodes of seizures Patient is anxious to go home Vital signs noted Hospitalist Physical - Constitutional Vitals: Temp Pulse Resp BP Pulse Ox 98.4 F 78 18 114/76 98 04/05/21 12:38 04/05/21 13:18 04/05/21 13:18 04/05/21 12:38 04/05/21 13:18 General appearance: Present: no acute distress, well-nourished, other (Lethargic) - EENT Eyes: Present: PERRL, EOM intact - Neck Neck: Present: supple, normal ROM - Respiratory Respiratory effort: normal Respiratory: bilateral: CTA, negative: rales, rhonchi, wheezing - Cardiovascular Rhythm: regular Heart Sounds: Present: S1 & S2 - Extremities Extremities: no ischemia, No edema - Abdominal General gastrointestinal: soft, non-tender, non-distended, normal bowel sounds - Integumentary Integumentary: Present: clear, warm - Psychiatric Psychiatric: appropriate mood/affect, cooperative - Neurologic Neurologic: CNII-XII intact, moves all extremities Results - Labs CBC & Chem 7: 04/05/21 08:18 04/05/21 05:28 Labs: Laboratory Last Values WBC 10.3 K/mm3 (4.5-11.0) 04/05/21 08:18 RBC 3.06 M/mm3 (3.65-5.03) L 04/05/21 08:18 Hgb 11.6 gm/dl (11.8-15.2) L 04/05/21 08:18 Hct 32.0 % (35.5-45.6) L 04/05/21 08:18 MCV 104 fl (84-94) H 04/05/21 08:18 MCH 38 pg (28-32) H 04/05/21 08:18 MCHC 36 % (32-34) H 04/05/21 08:18 RDW 13.8 % (13.2-15.2) 04/05/21 08:18 Plt Count 164 K/mm3 (140-440) 04/05/21 08:18 Lymph % (Auto) 12.2 % (13.4-35.0) L 04/05/21 08:18 Andrew % (Auto) 15.3 % (0.0-7.3) H 04/05/21 08:18 Eos % (Auto) 0.0 % (0.0-4.3) 04/05/21 08:18 Baso % (Auto) 0.1 % (0.0-1.8) 04/05/21 08:18 Lymph # (Auto) 1.3 K/mm3 (1.2-5.4) 04/05/21 08:18 Andrew # (Auto) 1.6 K/mm3 (0.0-0.8) H 04/05/21 08:18 Eos # (Auto) 0.0 K/mm3 (0.0-0.4) 04/05/21 08:18 Baso # (Auto) 0.0 K/mm3 (0.0-0.1) 04/05/21 08:18 Add Manual Diff Complete 04/02/21 11:45 Total Counted 100 04/02/21 11:45 Seg Neutrophils % 72.4 % (40.0-70.0) H 04/05/21 08:18 Seg Neuts % (Manual) 77.0 % (40.0-70.0) H 04/02/21 11:45 Band Neutrophils % 2.0 % 04/02/21 11:45 Lymphocytes % (Manual) 6.0 % (13.4-35.0) L 04/02/21 11:45 Monocytes % (Manual) 15.0 % (0.0-7.3) H 04/02/21 11:45 Nucleated RBC % Not Reportable 04/02/21 11:45 Seg Neutrophils # 7.5 K/mm3 (1.8-7.7) 04/05/21 08:18 Seg Neutrophils # Man 11.1 K/mm3 (1.8-7.7) H 04/02/21 11:45 Band Neutrophils # 0.3 K/mm3 04/02/21 11:45 Lymphocytes # (Manual) 0.9 K/mm3 (1.2-5.4) L 04/02/21 11:45 Abs React Lymphs (Man) 0.0 K/mm3 04/02/21 11:45 Monocytes # (Manual) 2.2 K/mm3 (0.0-0.8) H 04/02/21 11:45 Eosinophils # (Manual) 0.0 K/mm3 (0.0-0.4) 04/02/21 11:45 Basophils # (Manual) 0.0 K/mm3 (0.0-0.1) 04/02/21 11:45 Metamyelocytes # 0.0 K/mm3 04/02/21 11:45 Myelocytes # 0.0 K/mm3 04/02/21 11:45 Promyelocytes # 0.0 K/mm3 04/02/21 11:45 Blast Cells # 0.0 K/mm3 04/02/21 11:45 WBC Morphology Not Reportable 04/02/21 11:45 Hypersegmented Neuts Not Reportable 04/02/21 11:45 Hyposegmented Neuts Not Reportable 04/02/21 11:45 Hypogranular Neuts Not Reportable 04/02/21 11:45 Smudge Cells Not Reportable 04/02/21 11:45 Toxic Granulation Not Reportable 04/02/21 11:45 Toxic Vacuolation Not Reportable 04/02/21 11:45 Dohle Bodies Not Reportable 04/02/21 11:45 Pelger-Huet Anomaly Not Reportable 04/02/21 11:45 Kojo Rods Not Reportable 04/02/21 11:45 Platelet Estimate Consistent w auto 04/02/21 11:45 Clumped Platelets Not Reportable 04/02/21 11:45 Plt Clumps, EDTA Not Reportable 04/02/21 11:45 Large Platelets Not Reportable 04/02/21 11:45 Giant Platelets Not Reportable 04/02/21 11:45 Platelet Satelliting Not Reportable 04/02/21 11:45 Plt Morphology Comment Not Reportable 04/02/21 11:45 RBC Morphology Not Reportable 04/02/21 11:45 Dimorphic RBCs Not Reportable 04/02/21 11:45 Polychromasia Not Reportable 04/02/21 11:45 Hypochromasia Not Reportable 04/02/21 11:45 Poikilocytosis Not Reportable 04/02/21 11:45 Anisocytosis 1+ 04/02/21 11:45 Microcytosis Not Reportable 04/02/21 11:45 Macrocytosis Not Reportable 04/02/21 11:45 Spherocytes Not Reportable 04/02/21 11:45 Pappenheimer Bodies Not Reportable 04/02/21 11:45 Sickle Cells Not Reportable 04/02/21 11:45 Target Cells Not Reportable 04/02/21 11:45 Tear Drop Cells Not Reportable 04/02/21 11:45 Ovalocytes Not Reportable 04/02/21 11:45 Helmet Cells Not Reportable 04/02/21 11:45 [place] Bodies Not Reportable 04/02/21 11:45 [place] Rings Not Reportable 04/02/21 11:45 Gracie Cells Not Reportable 04/02/21 11:45 Bite Cells Not Reportable 04/02/21 11:45 Crenated Cell Not Reportable 04/02/21 11:45 Elliptocytes Not Reportable 04/02/21 11:45 Acanthocytes (Spur) Not Reportable 04/02/21 11:45 Rouleaux Not Reportable 04/02/21 11:45 Hemoglobin C Crystals Not Reportable 04/02/21 11:45 Schistocytes Not Reportable 04/02/21 11:45 Malaria parasites Not Reportable 04/02/21 11:45 Regan Bodies Not Reportable 04/02/21 11:45 Hem Pathologist Commnt No 04/02/21 11:45 Sodium 132 mmol/L (137-145) L 04/05/21 05:28 Potassium 3.7 mmol/L (3.6-5.0) 04/05/21 05:28 Chloride 95.3 mmol/L (98-107) L 04/05/21 05:28 Carbon Dioxide 22 mmol/L (22-30) 04/05/21 05:28 Anion Gap 18 mmol/L 04/05/21 05:28 BUN 10 mg/dL (9-20) 04/05/21 05:28 Creatinine 0.6 mg/dL (0.8-1.3) L 04/05/21 05:28 Estimated GFR > 60 ml/min 04/05/21 05:28 BUN/Creatinine Ratio 17 % 04/05/21 05:28 Glucose 96 mg/dL (75-100) 04/05/21 05:28 Calcium 8.5 mg/dL (8.4-10.2) 04/05/21 05:28 Phosphorus 3.00 mg/dL (2.5-4.5) 04/05/21 05:28 Magnesium 1.60 mg/dL (1.7-2.3) L 04/05/21 05:28 Total Bilirubin 0.60 mg/dL (0.1-1.2) 04/05/21 05:28 AST 14 units/L (5-40) 04/05/21 05:28 ALT 10 units/L (7-56) 04/05/21 05:28 Alkaline Phosphatase 33 units/L (35-129) L 04/05/21 05:28 Total Protein 5.8 g/dL (6.3-8.2) L 04/05/21 05:28 Albumin 2.6 g/dL (3.9-5) L 04/05/21 05:28 Albumin/Globulin Ratio 0.8 % 04/05/21 05:28 Urine Opiates Screen Negative 04/02/21 Unknown Urine Methadone Screen Negative 04/02/21 Unknown Ur Barbiturates Screen Negative 04/02/21 Unknown Ur Phencyclidine Scrn Negative 04/02/21 Unknown Ur Amphetamines Screen Negative 04/02/21 Unknown U Benzodiazepines Scrn Negative 04/02/21 Unknown Urine Cocaine Screen Negative 04/02/21 Unknown U Marijuana (THC) Screen Positive 04/02/21 Unknown Drugs of Abuse Note Disclamer 04/02/21 Unknown Plasma/Serum Alcohol < 0.01 % (0-0.07) 04/02/21 11:45 Gutierrez/IV: Voiding Method Condom Catheter Active Medications - Current Medications Current Medications: Generic Name Dose Route Start Last Admin Trade Name Freq PRN Reason Stop Dose Admin Acetaminophen 650 mg 04/02/21 20:16 Acetaminophen 325 Mg Tab PO Q4H PRN Pain MILD(1-3)/Fever >100.5/[place] Famotidine 20 mg 04/02/21 22:00 04/05/21 09:45 Famotidine 20 Mg Tab PO 20 mg BID YANIV Administration Heparin Sodium (Porcine) 5,000 unit 04/02/21 22:00 04/05/21 09:45 Heparin 5,000 Unit/1 Ml Vial SUB-Q 5,000 unit Q12HR YANIV Administration Hydromorphone HCl 0.5 mg 04/02/21 20:16 04/03/21 20:10 Hydromorphone 1 Mg/1 Ml Inj IV 0.5 mg Q3H PRN Administration Pain , Severe (7-10) Sodium Chloride 1,000 mls @ 125 mls/hr 04/02/21 17:00 04/04/21 01:01 Nacl 0.9% 1000 Ml IV 125 mls/hr DIRECT YANIV Administration Thiamine HCl 100 mg/ Sodium 51 mls @ 100 mls/hr 04/03/21 12:00 04/04/21 12:00 Chloride IV 04/05/21 23:59 100 mls/hr QDAY YANIV Administration Levetiracetam 750 mg 04/04/21 22:00 04/05/21 09:45 Levetiracetam 500 Mg/5 Ml Oral Liqd PO 750 mg BID YANIV Administration Levofloxacin 750 mg 04/05/21 10:00 04/05/21 09:45 Levofloxacin 750 Mg Tab PO 750 mg Q24HR YANIV Administration Protocol Lorazepam 2 mg 04/02/21 17:55 04/03/21 12:23 Lorazepam 2 Mg/Ml Vial IV 2 mg Q1HR PRN Administration CIWA-Ar 8-15 Lorazepam 4 mg 04/02/21 17:55 04/03/21 07:10 Lorazepam 2 Mg/Ml Vial IV 4 mg Q1HR PRN Administration CIWA-Ar 16-25 Lorazepam 4 mg 04/02/21 17:55 Lorazepam 2 Mg/Ml Vial IV Q15MIN PRN CIWA-Ar >25 Metoclopramide HCl 10 mg 04/02/21 20:16 Metoclopramide 10 Mg/2 Ml Inj IV Q6H PRN Nausea And Vomiting Ondansetron HCl 4 mg 04/02/21 20:16 Ondansetron 4 Mg/2 Ml Inj IV Q8H PRN Nausea And Vomiting Oxycodone/Acetaminophen 1 tab 04/02/21 20:16 Oxycodone /Acetaminophen 5-325mg Tab PO Q6H PRN Pain, Moderate (4-6) Sodium Chloride 10 ml 04/02/21 22:00 04/05/21 09:47 Sodium Chloride 0.9% 10 Ml Flush Syringe IV 10 ml BID YANIV Administration Sodium Chloride 10 ml 04/02/21 20:16 04/03/21 12:22 Sodium Chloride 0.9% 10 Ml Flush Syringe IV 10 ml PRN PRN Administration LINE FLUSH Nutrition/Malnutrition Assess - Dietary Evaluation Nutrition/Malnutrition Findings: Nutrition Notes Start: 04/04/21 14:10 Freq: Status: Active Protocol: Document 04/04/21 14:10 ALISON (Rec: 04/04/21 14:37 ALISON [id number]) Nutrition Notes Need for Assessment generated from: [facility] Initial or Follow up Assessment Other Pertinent Diagnosis Sezure, altered mental status Current Diet NPO (since D 04/02) Labs/Tests 04/03: Na 130, BUN 8, Cr 0.7. Pertinent Medications 04/03: Unremarkable. Height 5 ft 5 in Weight 56.5 kg Ryan Body Weight (kg) 61.81 BMI 20.7 Weight Status Appropriate Subjective/Other Information Pt on NPO, and unable to inform about food tolerance nor appetite. Percent of energy/protein needs met: Pt on NPO for +/- 48 hrs. Burn Absent Trauma Absent GI Symptoms None Food Allergy No Skin Integrity/Comment Integumentary; clear,warm, dry . Current % PO Other Minimum of two criteria No physical signs of malnutrition #1 Nutrition Diagnosis Inadequate energy intake,No nutrition diagnosis at this time Comments: Pt is not receiving energy/ protein needs due to NPO restriction; no further information available at the time. Is patient on ventilator? No Is Patient Ambulatory and/or Out of Bed Yes REE-([place]-St. Jeor-ambulatory/OOB) [ 1744.444 NUTR.MSJOOB] Kcal/Kg value to use for calculation 30 Approximate Energy Requirements Using 1695 kcal/Kg Calculation Used for Recommendations Kcal/kg Additional Notes Protein: 0.8-1.0 g/Kg/day; 50- 62 g/day; 200-240 Kcal/day ( from IBW). Fluids: 1.0 ml/Kcal, or as per MD. Nutrition Intervention Change Diet Order: Continue NPO as per MD. Goal #1 Maintain body weight within +/ -3% of current BWt during LOS. Goal #2 Reach and maintain acceptable chemistry lab values during LOS. Goal #3 Resume PO feeding as soon as possible. Follow-Up By: 04/11/21 Additional Comments Continue monitoring hydration and BM.
[2021-04-05] MEDS: THIAMINE 100 MG in SODIUM CHLORIDE 0.9% 50 ML IV SCH (16:28)
--- NOTE | 2021-04-05 17:31 | Magnetic Resonance Report ---
MRI BRAIN WITH CONTRAST INDICATION / CLINICAL INFORMATION: Abnormal MRI wo/rec by Neuro Dr Sage. TECHNIQUE: Multiplanar, multisequence MR images of the brain were obtained. COMPARISON: Noncontrast MRI done earlier today FINDINGS: There is no abnormal intracranial enhancement. There is persistent increased T2 signal in b oth hippocampi. IMPRESSION: 1. No abnormal intracranial enhancement or adverse change from previous brain MRI. Signer Name: Marquise Castro MD Signed: 04/05/2021 5:26 PM Workstation Name: [id number]
[2021-04-05] MEDS: LORazepam 2 MG/ML VIAL IV PRN ×2 (17:48→23:47)
[2021-04-06] MEDS: SODIUM CHLORIDE 0.9% 1000 ML 1,000 ML IV SCH (03:52)
[2021-04-06] MEDS: levETIRAcetam 500 MG/5 ML ORAL LIQD PO SCH ×3 (09:20→21:51)
[2021-04-06] MEDS: levoFLOXacin 750 MG TAB PO SCH (09:20)
[2021-04-06] MEDS: HEPARIN 5,000 UNIT/1 ML VIAL SUB-Q SCH ×2 (09:21→21:50)
[2021-04-06] MEDS: FAMOTIDINE 20 MG TAB PO SCH ×3 (09:21→21:51)
--- NOTE | 2021-04-06 11:05 | Progress Note ---
Assessment and Plan Assessment and Plan Advance Directives: Yes (Full code) Plan of care discussed with patient/family: Yes - Patient Problems # Acute encephalopathy -Patient is post ictal and secondary to recurrent seizure -EEG mild slowing no seizure is noted -CT brain is unremarkable -UDS showed Marijuana -Thiamin IV # Underlying dementia -mostly multifactorial -MRI brain with and without Gd is remarkable for bilateral mesial sclerosis #recurrent seizure -Patient is on IV Keppra can change to 750 mg bid -keppra 750 mg bid -hx of seizure according to pt. almost monthly -STOP driving and seizure precaution -No alcohol or recreational drugs -Comply with keppra -neurology follow up --MRI brain with and without Gd is remarkable for bilateral mesial sclerosis # Hyponatremia IV normal saline for now Recheck sodium level # Tetrahydrocannabinol (THC) dependence -Patient to be counseled about marijuana use # DVT prophylaxis -On heparin and GI prophylaxis PLAN 1- No objection to D/C 2- MRI finding explained to pt. doubt he comprehend findings 3- Underlying Dementia and Seizure -- MRI showed Bilateral mesial sclerosis 4- Seizure precaution ,No driving , avoid recreational drugs 5- neurology follow up for seizure and dementia 6- maintain Keppra 750 mg Bid will sign off Subjective Date of service: 04/06/21 Principal diagnosis: recurrent seizure Interval history: Pt. is more alert today disoriented to place and date recall his birthdate, does not knows president name, he remember his home address. according to pt. he stopped drinking few months back ? he is with recurrent seizure almost monthly at time take phenobarbitol ? he drives , lives with his mom. Objective - Vital Sign Vital Signs - 12hr 04/05/21 04/06/21 04/06/21 23:23 01:00 04:00 Temperature 99.3 F Pulse Rate 79 62 Respiratory 17 Rate Blood Pressure 124/81 O2 Sat by Pulse 96 97 Oximetry 04/06/21 04/06/21 04:42 07:40 Temperature 98.1 F 97.0 F L Pulse Rate 74 66 Respiratory 17 20 Rate Blood Pressure 124/80 104/72 O2 Sat by Pulse 98 93 Oximetry - General Apperance Constitutional: comfortable - EENT EENT: PERRL, mucous membranes moist - Respiratory Respiratory: chest non-tender, lungs clear - Cardiovascular Cardiovascular: regular rate, normal S1, normal S2 Extremities: no peripheral edema bilat, no clubbing, cyanosis - Gastrointestinal Gastrointestinal: normoactive bowel sounds - Integumentary Integumentary: normal - Neurologic Cranial nerve examination: intact Speech examination: intact Detailed motor examination: grossly full strength in - Laboratory Findings CBC and BMP: 04/05/21 08:18 04/05/21 05:28 Abnormal Lab Findings: Abnormal Labs 04/02/21 04/02/21 04/03/21 11:45 11:45 04:57 WBC 14.4 H RBC 3.52 L Hgb Hct MCV 104 H MCH 38 H MCHC 37 H Lymph % (Auto) Bremer % (Auto) Bremer # (Auto) Seg Neutrophils % Seg Neuts % (Manual) 77.0 H Lymphocytes % (Manual) 6.0 L Monocytes % (Manual) 15.0 H Seg Neutrophils # Man 11.1 H Lymphocytes # (Manual) 0.9 L Monocytes # (Manual) 2.2 H Sodium 130 L 130 L Chloride 92.1 L BUN 6 L 8 L Creatinine 0.7 L Glucose 74 L Magnesium Alkaline Phosphatase Total Protein Albumin 3.2 L 04/05/21 04/05/21 05:28 08:18 WBC RBC 3.06 L Hgb 11.6 L Hct 32.0 L MCV 104 H MCH 38 H MCHC 36 H Lymph % (Auto) 12.2 L Bremer % (Auto) 15.3 H Bremer # (Auto) 1.6 H Seg Neutrophils % 72.4 H Seg Neuts % (Manual) Lymphocytes % (Manual) Monocytes % (Manual) Seg Neutrophils # Man Lymphocytes # (Manual) Monocytes # (Manual) Sodium 132 L Chloride 95.3 L BUN Creatinine 0.6 L Glucose Magnesium 1.60 L Alkaline Phosphatase 33 L Total Protein 5.8 L Albumin 2.6 L
--- NOTE | 2021-04-06 12:20 | Discharge Summary ---
Providers - Providers Date of Admission: 04/03/21 10:07 Date of discharge: 04/06/21 Attending physician: DEEPIKA RON 04/02/21 20:16 Consult to Physician [CONS] Routine Comment: Consulting Provider: MICK AMAYA Physician Instructions: Reason For Exam: Seizure disorder 04/02/21 20:32 Speech Therapy Evaluation and Treat [CONS] Urgent Reason For Exam: cannot preform swallow screen with AMS Primary care physician: ROCKET [employer] Hospitalization Reason for admission: Multiple episodes of witnessed seizure at home Condition: Stable Pertinent studies: CT head without contrast; no acute abnormality noted MRI brain without contrast; no acute abnormality noted MRI brain with contrast; no acute abnormality noted EEG occasionally awake and mostly drowsy and sleepy record no clear epileptiform discharges or focal slowing appreciated Hospital course: 50-year-old male patient with significant past medical history of seizure disorder and chronic alcohol use was admitted through emergency room with history of multiple seizures at home witnessed by family patient was evaluated and admitted to the hospital started antiseizure medications placed on seizure precautions and subsequently evaluated by neurologist CT head without no abnormality noted and MRI brain without contrast no jey noted patient also underwent EEG the findings of which are as mentioned above, Patient was strongly advised to quit alcohol intake and seek alcohol rehabilitation next patient also advised seizure precautions next patient advised not to drive or operate heavy machinery until cleared by the neurologist patient verbalized understanding today patient is comfortable no new comp laints, vital signs stable, physical examination prior to discharge did not show any new changes cleared by consultants for discharge and follow-up per schedule Patient is hemodynamically and clinically stable at discharge Once again patient is reiterated not to drive motor vehicle or operate heavy machinery until cleared by neurologist or primary care physician Patient verbalized understanding Discharge diagnosis: -- Acute encephalopathy Current Visit: Yes Status: Acute Patient is post ictal and secondary to status epilepticus Showed improvement tomorrow -- Status epilepticus Current Visit: Yes Status: Acute Seizure precautions Patient is on IV Keppra To be transitioned to oral Keppra tomorrow Neurology evaluation noted and appreciated Recommend EEG ; slowing, no evidence of seizure. and MRI is requested, pending Patient advised not to take until cleared by neurologist/PMD -- Hyponatremia Current Visit: Yes Status: Acute IV normal saline for now Recheck sodium level --History of alcohol use Current Visit: Yes Status: Chronic Strongly advised to quit alcohol intake --Medical noncompliance Current Visit: Yes Status: Chronic Advised to comply with meds,diet and follow-up visits --Marijuana dependence Current Visit: Yes Status: Acute Patient counseled and advised to quit Recreational drug use Patient strongly advised to quit recreational drug use As well as alcohol intake Stable at discharge Disposition: 01 HOME / SELF CARE / HOMELESS Final Discharge Diagnosis (Prints w/discharge instructions): Acute encephalopat hy/resolved. Status epilepticus resolved. Seizure disorder. Hyponatremia resolved. History of alcohol use. History of marijuana use. Medical noncompliance Time spent for discharge: 35 min Core Measure Documentation - Palliative Care Palliative Care/ Comfort Measures: Not Applicable - Core Measures Any of the following diagnoses?: none Exam - Constitutional Vitals: Temp Pulse Resp BP Pulse Ox 97.0 F L 66 20 104/72 93 04/06/21 07:40 04/06/21 07:40 04/06/21 07:40 04/06/21 07:40 04/06/21 07:40 General appearance: Present: no acute distress, well-nourished - EENT Eyes: Present: PERRL, EOM intact - Neck Neck: Present: supple, normal ROM - Respiratory Respiratory effort: normal Respiratory: bilateral: diminished, negative: rales, rhonchi, wheezing - Cardiovascular Rhythm: regular Heart Sounds: Present: S1 & S2 - Extremities Extremities: no ischemia, No edema - Abdominal General gastrointestinal: Present: soft, non-tender, non-distended, normal bowel sounds - Integumentary Integumentary: Present: clear, warm - Musculoskeletal Musculoskeletal: strength equal bilaterally - Psychiatric Psychiatric: appropriate mood/affect, cooperative - Neurologic Neurologic: moves all extremities Plan Activity: advance as tolerated, no driving until cleared by PCP, other (Seizure precautions) Diet: regular Additional Instructions: Advised to comply with medications, diet and follow-up visits. Seizure precautions. Do not drive until cleared by neurologist, do not operate heavy machinery. If you have worsening symptoms contact MD or go to the nearest emergency room as needed. Advised to quit alcohol intake Follow up with: PRIMARY CARE, [Primary Care Provider] - 3-5 Days LEONILA FRIEDMAN MD [Staff Physician] - 7 Days Prescriptions: Folic Acid [Folvite] 1 mg PO QDAY #30 tablet levETIRAcetam [Keppra TAB] 750 mg PO BID #60 tablet Famotidine [Pepcid] 20 mg PO BID #30 tablet Thiamine [Vitamin B-1] 100 mg PO QDAY #30 tablet
[2021-04-06] MEDS: LORazepam 2 MG/ML VIAL IV PRN (21:50)
[2021-04-07 06:20] VITALS: BP 115/68
== END 2021-04-07 07:05 | disposition home or self-care (01) | DRG 100 ==
LOC: ED 10:55 → 3A 16:42 → 4A 20:20 → OBSVTOIN 04-03 10:07 → 4A 04-03 19:44
PROVIDERS: ADMIT Internal Medicine; ATTEND Internal Medicine
DX: G40.901 Epilepsy, unspecified, not intractable, with status epilepticus (principal); E43 Unspecified severe protein-calorie malnutrition; F05 Delirium due to known physiological condition; E87.1 Hypo-osmolality and hyponatremia; F12.20 Cannabis dependence, uncomplicated; Z88.6 Allergy status to analgesic agent; Z88.8 Allergy status to other drugs, medicaments and biological substances; F17.200 Nicotine dependence, unspecified, uncomplicated; F03.90 Unspecified dementia, unspecified severity, without behavioral disturbance, psychotic disturbance, mood disturbance, and anxiety; Z91.19 Patient's noncompliance with other medical treatment and regimen
CPT/HCPCS: 36415; 70450; 70551; 70552; 80048; 80053; 80307; 80320; 83735; 84100; 85007; 85025; 95819; 96374; 96375; G0378; A9575; G0480; J1170; J1644; J1953; J2060; J3411; J3475; J7030